=== PATIENT | female | born 1985 | race Caucasian/White ===

== ENCOUNTER 2016-12-01 18:51 | Emergency (ER) | payer OTHER ==
[~2016-12-01] VITALS: Ht 160 cm; Wt 65.0 kg
[2016-12-01 19:30] VITALS: BP 157/87; PULSE 118; RESP 18; TEMP 98.1; O2SAT 98
[2016-12-01] MEDS ORDERED: CYCLOBENZAPRINE HCL 10 MG TAB PO ONE (19:45)
[2016-12-01] MEDS ORDERED: ONDANSETRON ODT 4 MG TAB PO ONE (19:45)
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
[2016-12-01] MEDS ORDERED: ATENOLOL 25 MG TAB PO ONE (20:00)
[2016-12-01] MEDS ORDERED: ATEN25TA PO (20:01)
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
[2016-12-01 20:27] VITALS: PULSE 105
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
[2016-12-01] MEDS ORDERED: KETOROLAC TROMETHAMINE 60 MG/2 ML (IM) VIAL IM ONE (20:45)
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
[2016-12-01 21:40] VITALS: PULSE 77
[2016-12-01] MEDS ORDERED: NAPR500 PO (21:45)
[2016-12-01] MEDS ORDERED: CYCL1TAB29 PO (21:45)
== END 2016-12-01 21:54 | disposition home or self-care (01) ==
LOC: NEPD 18:51
DX: S09.90XA Unspecified injury of head, initial encounter (principal); S16.1XXA Strain of muscle, fascia and tendon at neck level, initial encounter; M54.32 Sciatica, left side; R51 Headache; I10 Essential (primary) hypertension; Y04.0XXA Assault by unarmed brawl or fight, initial encounter
CPT/HCPCS: 70450; 72040; 72050; 72100; 96372; 99285; J1885

== ENCOUNTER 2017-03-02 16:12 | Emergency (ER) | payer OTHER ==
[~2017-03-02] VITALS: Ht 157.5 cm; Wt 64.8 kg
[~2017-03-02 16:12] MED LIST: ATEN25TA PO; CYCL1TAB29 PO; NAPR500 PO
[2017-03-02 16:28] VITALS: BP 125/70; PULSE 73; RESP 16; TEMP 98.3; O2SAT 98
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
[2017-03-02 17:17] LABS: BLOOD, URINE NEG (NEG); GLUCOSE,URINE NEG (NEG); KETONE, URINE NEG (NEG); NITRITE,URINE NEG (NEG); PH, URINE 5.5 (5.0-8.5)
[2017-03-02 17:19] LABS: BASOPHIL % 0.6 % (0.0-2.0); EOSINOPHIL # 0.1 TH/MM3 (0-0.4); EOSINOPHIL % 1.6 % (0.0-4.0); HEMO FLAGS DIFF FINAL; LYMPH % 26.9 % (9.0-44.0); LYMPHOCYTE # 1.7 TH/MM3 (1.0-4.8); MEAN CELL VOLUME 87.3 FL (80.0-100.0); MEAN CORPUSCULAR HEMOGLOBIN 29.6 PG (27.0-34.0); MEAN CORPUSCULAR HGB CONC 33.9 % (32.0-36.0); MONO % 7.7 % (0.0-8.0); NEUT % 63.2 % (16.0-70.0); PLATELET COUNT 194 TH/MM3 (150-450); RED BLOOD COUNT 4.47 MIL/MM3 (4.00-5.30); WHITE BLOOD COUNT 6.3 TH/MM3 (4.0-11.0)
[2017-03-02 17:22] LABS: BACTERIA, URINE RARE /hpf; COMMENT (UR) CULT NOT INDICATED; CULTURE IF INDICATED CULT NOT INDICATED; METHOD OF COLLECTION CLEAN CATCH; SQUAMOUS EPITHELIAL CELL URINE > 8 /hpf (0-5); URINE COLOR YELLOW (YELLW/STRAW); WBC, URINE 0-2 /hpf (0-5)
[2017-03-02 17:27] LABS: CHLORIDE 105 MEQ/L (98-107); POTASSIUM 3.6 MEQ/L (3.5-5.1); SODIUM (NA) 139 MEQ/L (136-145)
[2017-03-02 17:30] LABS: ANION GAP 8 MEQ/L (5-15); BICARBONATE 26.3 MEQ/L (21.0-32.0); BLOOD UREA NITROGEN 15 MG/DL (7-18)
[2017-03-02] MEDS ORDERED: KETOROLAC TROMETHAMINE 30 MG/ML (IVP) VIAL IV PUSH ONE (17:30)
[2017-03-02 17:33] LABS: GLOMERULAR FILTRATION RATE 114 ML/MIN (>89)
[2017-03-02 17:38] LABS: BETA HCG QUANT LESS THAN 1 MIU/ML (0-5)
--- NOTE | 2017-03-02 18:15 | RADRPT ---
EXAM DATE/TIME: 03/02/2017 17:45 [facility] COMPARISON: No previous studies available for comparison. INDICATIONS : Pelvic pain. MEDICAL HISTORY : Hypertension. Fibromyalgia. Depression. Anxiety. SURGICAL HISTORY : section. ENCOUNTER: Initial ACUITY: 2 weeks PAIN SCORE: 6/10 LOCATION: Bilateral pelvis MEASUREMENTS: UTERUS: 9.1 x 5.9 x 4.8 cm ENDOMETRIAL STRIPE: 7 mm RIGHT OVARY: 2.4 x 1.7 x 1.5 cm LEFT OVARY: 2.5 x x 1.9 cm FINDINGS: UTERUS: The myometrium has homogeneous echotexture without mass. RIGHT OVARY: Ovary contains no mass or significant cystic lesion. LEFT OVARY: Ovary contains no mass or significant cystic lesion. MISCELLANEOUS: Minimal free fluid. CONCLUSION: Unremarkable sonographic appearance of the pelvis Zhang Rios MD on March 02, 2017 at 18:10 Board Certified Radiologist. This report was verified electronically.
[2017-03-02] MEDS ORDERED: TRAM50TA PO (18:26)
[2017-03-02] MEDS ORDERED: NAPR500T PO (18:26)
[2017-03-02 21:10] LABS: CHLAMYDIA PCR NOT DETECTED (NOT DETECT); NEISSERIA PCR NOT DETECTED (NOT DETECT)
== END 2017-03-02 18:49 | disposition home or self-care (01) ==
LOC: PHED 16:12
DX: R10.2 Pelvic and perineal pain (principal)
CPT/HCPCS: 76856; 80048; 81001; 84702; 85025; 87210; 87491; 87591; 96374; 99285; J1885